=== PATIENT | female | born 1970 | race Hispanic/Latino ===

== ENCOUNTER 2016-09-18 13:28 | Emergency (ER) | payer SELFPAY ==
[2016-09-18 13:29] VITALS: BMI 24.1
[2016-09-18 13:48] VITALS: BP 117/78; PULSE 76; RESP 20; TEMP 98.2; O2SAT 98
--- NOTE | 2016-09-18 14:27 | ED PDOC ---
HPI: CCC, URI, Sore Throat Time Seen by Provider: 09/18/16 13:51 Chief Complaint (Nursing): Flu-like Symptoms Chief Complaint (Provider): Cough History Per: Patient History/Exam Limitations: no limitations Have you had recent travel within the past 21 days to any of the following countries: [place], [place], [place] or [place]?: No Onset/Duration Of Symptoms: Days (since yesterday) Current Symptoms Are (Timing): Still Present Associated Symptoms: Sore Throat, Nasal Congestion. denies: Fever, Chills Severity: Moderate Additional Complaint(s): Cecilia Blum is a 45 year old female, with a past medical history that includes hypercholesterolemia, who presents to the ED on 09/18/16 for the evaluation of a moderate, nonproductive cough that she has experienced since yesterday. Associated nasal congestion and sore throat also reported, though she denies fever, chills, shortness of breath, throat swelling, rash, abdominal pain or recent travel. Has medicated with theraflu with a reported worsening of symptoms. Of note, recent sick contacts include the patient's 5 month old granddaughter, who was recently diagnosed with Influenza. PMD: Sun Nagy Past Medical History Reviewed: Historical Data, Nursing Documentation, Vital Signs Vital Signs: Last Vital Signs Temp 98.2 F 09/18/16 13:45 Pulse 76 09/18/16 13:45 Resp 20 09/18/16 13:45 BP 117/78 09/18/16 13:45 Pulse Ox 98 09/18/16 14:30 - Medical History PMH: Asthma, Fractures (right foot), Hypercholesterolemia, Malignancy (sarcoma rt femur), Migraine Denies: HIV, Chronic Kidney Disease - Surgical History Surgical History: Appendectomy, - Family History Family History: States: Unknown Family Hx, CAD - Immunization History Hx Tetanus Toxoid Vaccination: Yes Hx Influenza Vaccination: Yes Hx Pneumococcal Vaccination: No - Home Medications Home Medications: Ambulatory Orders Medication Instructions Recorded Albuterol HFA [Ventolin HFA 90 2 puff IH [id number] 11/07/15 mcg/actuation (8 g)] Fluticasone/Salmeterol 250/50 1 puff IH Q12 11/07/15 [Advair Diskus] Montelukast [Singulair] 10 mg PO HS 11/07/15 Pantoprazole [Protonix] 40 mg PO DAILY 11/07/15 Sumatriptan Succinate [Imitrex] 100 mg PO PRN PRN 11/07/15 Ondansetron ODT [Zofran ODT] 4 mg PO Q8 PRN #10 odt 01/17/16 Naproxen [Naprosyn] 500 mg PO Q12H #20 tab 04/01/16 Cyclobenzaprine [Flexeril] 5 mg PO Q8 PRN #15 tab 08/02/16 Naproxen [Naprosyn] 1 tab PO BID PRN #30 tab 08/02/16 Benzonatate [Tessalon Perle] 100 mg PO Q8 PRN #30 capsule 09/18/16 Fluticasone Propionate [Flonase] 2 spr NS DAILY PRN #1 bottle 09/18/16 - Allergies Allergies/Adverse Reactions: Allergies Allergy/AdvReac Type Severity Reaction Status Date / Time FISH Allergy Intermediate RASH Verified 09/18/16 13:44 sulfamethoxazole Allergy RASH Verified 09/18/16 13:44 [From Bactrim] trimethoprim [From Bactrim] Allergy RASH Verified 09/18/16 13:44 vancomycin Allergy RASH Verified 09/18/16 13:44 Review of Systems ENT: Positive for: Nose Congestion, Throat Pain. Negative for: Throat Swelling Respiratory: Positive for: Cough. Negative for: Shortness of Breath Gastrointestinal: Negative for: Abdominal Pain Skin: Negative for: Rash Physical Exam - Reviewed Nursing Documentation Reviewed: Yes Vital Signs Reviewed: Yes - Physical Exam Appears: Positive for: Non-toxic, No Acute Distress Head Exam: Positive for: ATRAUMATIC, NORMOCEPHALIC Skin: Positive for: Normal Color, Warm, Dry Eye Exam: Positive for: Normal appearance, PERRL ENT: Positive for: Normal ENT Inspection. Negative for: Pharyngeal Erythema, Tonsillar Exudate, Tonsillar Swelling Cardiovascular/Chest: Positive for: Regular Rate, Rhythm. Negative for: Murmur Respiratory: Positive for: Normal Breath Sounds. Negative for: Respiratory Distress Neurologic/Psych: Positive for: Alert, Oriented - ECG O2 Sat by Pulse Oximetry: 98 (RA) Pulse Ox Interpretation: Normal - Progress ED Course And Treament: Rapid strep, rapid flu: negative. Medical Decision Making Medical Decision Makin:51 Initial Impression: cough/congestion/sore throat; will r/o Influenza, Strep Initial Plan: * Influenza A B * Rapid Strep Scribe Attestation: Documented by Chyna Kim, acting as a scribe for Jack Abbott PA-C. Provider Scribe Attestation: All medical record entries made by the Scribe were at my direction and personally dictated by me. I have reviewed the chart and agree that the record accurately reflects my personal performance of the history, physical exam, medical decision making, and the department course for this patient. I have also personally directed, reviewed, and agree with the discharge instructions and disposition. Disposition - Clinical Impression Clinical Impression: Upper respiratory infection - Patient ED Disposition Is Patient to be Admitted: No - Disposition Referrals: [facility] [Outside] Disposition: Routine/Home Disposition Time: 15:10 Condition: STABLE Additional Instructions: Follow up with your PMD in 2 days for further evaluation. Prescriptions: Fluticasone Propionate [Flonase] 2 spr NS DAILY PRN #1 bottle PRN Reason: Allergy Symptoms Benzonatate [Tessalon Perle] 100 mg PO Q8 PRN #30 capsule PRN Reason: Cough Instructions: Upper Respiratory Infection (ED) Forms: [facility] ED School/Work Excuse
== END 2016-09-18 15:27 | disposition home or self-care (01) ==
LOC: H.ER 13:28
DX: J06.9 Acute upper respiratory infection, unspecified (principal); J02.9 Acute pharyngitis, unspecified; E78.00 Pure hypercholesterolemia, unspecified

== ENCOUNTER 2017-01-23 09:31 | Emergency (ER) | payer MEDICAID, OTHER ==
[2017-01-23 09:31] VITALS: BMI 23.3
[2017-01-23 10:06] VITALS: BP 113/71; PULSE 78; RESP 18; TEMP 98.6; O2SAT 98
--- NOTE | 2017-01-23 10:21 | ED PDOC ---
Lower Extremity Pain/Injury Time Seen by Provider: 01/23/17 09:47 Chief Complaint (Nursing): Lower Extremity Problem/Injury Chief Complaint (Provider): Knee injury History Per: Patient History/Exam Limitations: no limitations Onset/Duration Of Symptoms: Days (Yesterday) Current Symptoms Are (Timing): Still Present Additional Complaint(s): Pt. with R knee and ankle pain. Started last night after twisting her ankle and knee while walking. No numbness, tingles, weakness. No hip pain. No back pain, chest pain, dyspnea. No dizziness, head injury. Ambulating on it with pain and wearing slippers. Past Medical History Reviewed: Nursing Documentation, Vital Signs Vital Signs: Last Vital Signs Temp 98.6 F 01/23/17 10:05 Pulse 78 01/23/17 10:05 Resp 18 01/23/17 10:05 BP 113/71 01/23/17 10:05 Pulse Ox 98 01/23/17 10:05 - Medical History PMH: Asthma, Fractures, Hypercholesterolemia, Malignancy (sarcoma rt femur), Migraine Denies: Chronic Kidney Disease - Surgical History Surgical History: Appendectomy, - Family History Family History: States: CAD - Immunization History Hx Tetanus Toxoid Vaccination: Yes Hx Influenza Vaccination: Yes Hx Pneumococcal Vaccination: No - Home Medications Home Medications: Ambulatory Orders Medication Instructions Recorded Ibuprofen [Motrin] 600 mg PO TID 7 Days 01/23/17 - Allergies Allergies/Adverse Reactions: Allergies Allergy/AdvReac Type Severity Reaction Status Date / Time FISH Allergy Intermediate RASH Verified 01/23/17 10:15 sulfamethoxazole Allergy RASH Verified 01/23/17 10:15 [From Bactrim] trimethoprim [From Bactrim] Allergy RASH Verified 01/23/17 10:15 vancomycin Allergy RASH Verified 01/23/17 10:15 Review of Systems Constitutional: Negative for: Weakness Cardiovascular: Negative for: Chest Pain Respiratory: Negative for: Shortness of Breath Musculoskeletal: Positive for: Leg Pain. Negative for: Neck Pain, Shoulder Pain , Arm Pain, Back Pain, Hand Pain Skin: Negative for: Rash Neurological: Negative for: Weakness, Numbness, Dizziness Physical Exam - Reviewed Nursing Documentation Reviewed: Yes Vital Signs Reviewed: Yes - Physical Exam Appears: Positive for: Non-toxic, No Acute Distress Head Exam: Positive for: ATRAUMATIC, NORMAL INSPECTION, NORMOCEPHALIC Skin: Positive for: Normal Color, Warm, DRY Neck: Positive for: Normal, Painless ROM Cardiovascular/Chest: Positive for: Regular Rate, Rhythm Respiratory: Positive for: CNT, Normal Breath Sounds Pulses-Dorsalis Pedis (R): 2+ Back: Positive for: Normal Inspection. Negative for: L CVA Tenderness, R CVA Tenderness Extremity: Positive for: Normal ROM, Tenderness (R lateral knee mild with trace swelling; no laxity to joint; R ankle lateral mild tender; no laxity or swelling ; no erythema anywhere). Negative for: Calf Tenderness Neurologic/Psych: Positive for: Alert, Oriented - ECG O2 Sat by Pulse Oximetry: 98 Pulse Ox Interpretation: Normal - Radiology X-Ray: Interpreted by Me, Viewed By Me X-Ray Interpretation: No Acute Disease - Progress ED Course And Treament: 1134: Stable. AAOx3. Ambulating with no issues. Fu with pcp. Disposition - Clinical Impression Clinical Impression: Knee injury, Ankle injury - Patient ED Disposition Is Patient to be Admitted: No Counseled Patient/Family Regarding: Studies Performed, Diagnosis, Need For Followup - Disposition Referrals: [facility] [Outside] - 01/25/17 Disposition: Routine/Home Disposition Time: 11:37 Condition: STABLE Additional Instructions: Return if not better in 3 days. Prescriptions: Ibuprofen [Motrin] 600 mg PO TID 7 Days Instructions: Musculoskeletal Pain (ED), Knee Pain (ED)
--- NOTE | 2017-01-24 08:56 | RAD ---
PROCEDURE: Right Knee Radiographs. HISTORY: pain COMPARISON: None. FINDINGS: BONES: Postsurgical changes of the distal femur. No fracture. JOINTS: Normal. No osteoarthritis. JOINT EFFUSION: None. OTHER FINDINGS: None. IMPRESSION: Postsurgical changes of the distal femur.
--- NOTE | 2017-01-24 09:08 | RAD ---
HISTORY: pain COMPARISON: No prior FINDINGS: BONES: Normal. No fracture. JOINTS: Normal. No osteoarthritis. SOFT TISSUE: Plantar spur formation. OTHER FINDINGS: None . IMPRESSION: No fracture.
== END 2017-01-23 12:00 | disposition home or self-care (01) ==
LOC: H.ER 09:31
DX: S89.91XA Unspecified injury of right lower leg, initial encounter (principal); S99.911A Unspecified injury of right ankle, initial encounter; X50.9XXA Other and unspecified overexertion or strenuous movements or postures, initial encounter; Y92.89 Other specified places as the place of occurrence of the external cause; E78.00 Pure hypercholesterolemia, unspecified

== ENCOUNTER 2017-03-29 06:41 | Emergency (ER) | payer OTHER ==
[2017-03-29 06:42] VITALS: BMI 23.3
[2017-03-29 06:56] VITALS: BP 120/76; PULSE 85; RESP 18; TEMP 98.3; O2SAT 98
[2017-03-29] MEDS ORDERED: Sodium Chloride 0.9% 1,000 ML IV STA (07:27)
--- NOTE | 2017-03-29 07:31 | ED PDOC ---
HPI: Abdomen Time Seen by Provider: 03/29/17 07:08 Chief Complaint (Nursing): Abdominal Pain Chief Complaint (Provider): Abdominal Pain History Per: Patient History/Exam Limitations: no limitations Onset/Duration Of Symptoms: Days (x1) Current Symptoms Are (Timing): Still Present Additional Complaint(s): Cecilia Blum is a 46 year old female with a past medical history of asthma and a past surgical history of an appendectomy and a myomectomy presenting to the ED for an evaluation of cramping in her right lower leg occurring last night for which she took 3 tablets of Motrin. The patient states she then woke up this morning with left flank pain, nausea, and non-bloody vomiting. She also has associated decreased urination occurring since yesterday. She denies fever, constipation, diarrhea, dysuria, and hematuria. PMD: Janet Trevino MD Past Medical History Reviewed: Historical Data, Nursing Documentation, Vital Signs Vital Signs: Last Vital Signs Temp 98.3 F 03/29/17 07:07 Pulse 85 03/29/17 07:07 Resp 18 03/29/17 07:07 BP 120/76 03/29/17 07:07 Pulse Ox 98 03/29/17 07:35 - Medical History PMH: Asthma, Fractures, Hypercholesterolemia, Malignancy (sarcoma rt femur), Migraine Denies: Chronic Kidney Disease - Surgical History Surgical History: Appendectomy, Other surgeries: myomectomy - Family History Family History: States: CAD - Social History Current smoker - smoking cessation education provided: No Ex-Smoker (has not smoked in the last 12 months): No Alcohol: None Drugs: Denies, Other (denies OCP use) - Immunization History Hx Tetanus Toxoid Vaccination: Yes Hx Influenza Vaccination: Yes Hx Pneumococcal Vaccination: No - Home Medications Home Medications: Ambulatory Orders Medication Instructions Recorded Ibuprofen [Motrin] 600 mg PO TID 7 Days tab 01/23/17 Naproxen [Naprosyn] 500 mg PO BID PRN #15 tablet 03/29/17 Polyethylene Glycol 3350 [Miralax] 1 tbs PO DAILY PRN #1 bottle 03/29/17 - Allergies Allergies/Adverse Reactions: Allergies Allergy/AdvReac Type Severity Reaction Status Date / Time FISH Allergy Intermediate RASH Verified 03/29/17 07:07 sulfamethoxazole Allergy RASH Verified 03/29/17 07:07 [From Bactrim] trimethoprim [From Bactrim] Allergy RASH Verified 03/29/17 07:07 vancomycin Allergy RASH Verified 03/29/17 07:07 Review of Systems ROS Statement: Except As Marked, All Systems Reviewed And Found Negative Constitutional: Negative for: Fever Gastrointestinal: Positive for: Nausea, Vomiting (non-bloody), Abdominal Pain ( left flank pain). Negative for: Diarrhea, Constipation Genitourinary Female: Positive for: Other (decreased urination). Negative for: Dysuria, Hematuria Musculoskeletal: Positive for: Leg Pain (right lower leg cramping) Physical Exam - Reviewed Nursing Documentation Reviewed: Yes Vital Signs Reviewed: Yes - Physical Exam Appears: Positive for: Non-toxic. Negative for: No Acute Distress (mild painful distress) Head Exam: Positive for: ATRAUMATIC, NORMOCEPHALIC Skin: Positive for: Normal Color, Warm, Dry Eye Exam: Positive for: Normal appearance ENT: Positive for: Normal ENT Inspection Neck: Positive for: Normal Cardiovascular/Chest: Positive for: Regular Rate, Rhythm Respiratory: Negative for: Respiratory Distress Gastrointestinal/Abdominal: Positive for: Tenderness (to LLQ). Negative for: Guarding, Rebound Back: Positive for: L CVA Tenderness. Negative for: R CVA Tenderness Extremity: Positive for: Tenderness (right calf tenderness) Neurologic/Psych: Positive for: Alert, Oriented. Negative for: Motor/Sensory Deficits - Laboratory Results Result Diagrams: 03/29/17 07:45 03/29/17 07:45 - ECG O2 Sat by Pulse Oximetry: 98 (RA) Pulse Ox Interpretation: Normal Medical Decision Making Medical Decision Making: Time: 07:08 Impression: Right lower leg cramping Plan: * ED Ekg * CMP * CBC (with differential) * PTT * Prothrombin Time * Urinalysis * US Duplex Lower Ext Vein Right * CT Abd & Pelvis W/O PO or IV Cont * Morphine 2 mg IV * NS 1,000 ml IV 1,000 mls/hr * Zofran Inj 4 mg IV * Reevaluation Pt given copy of CT report. Scribe Attestation: Documented by Yessica Sheldon, acting as a scribe for Deena Flower MD. Provider Scribe Attestation: All medical record entries made by the Scribe were at my direction and personally dictated by me. I have reviewed the chart and agree that the record accurately reflects my personal performance of the history, physical exam, medical decision making, and the department course for this patient. I have also personally directed, reviewed, and agree with the discharge instructions and disposition. Disposition - Clinical Impression Clinical Impression: Mesenteric adenitis, Leg pain, Hiatal hernia, Constipation - Disposition Referrals: Janet Trevino MD [Primary Care Provider] - Condition: STABLE Prescriptions: Naproxen [Naprosyn] 500 mg PO BID PRN #15 tablet PRN Reason: Pain, Moderate (4-7) Polyethylene Glycol 3350 [Miralax] 1 tbs PO DAILY PRN #1 bottle PRN Reason: Constipation Instructions: Mesenteric Adenitis (ED), Leg Pain (ED), Hiatal Hernia (ED), Constipation (ED) Forms: [employer] (Turkish)
[2017-03-29 07:58] LABS: BASO % 0.5 % (0.0-2.0); EOS # 0.1 K/uL (0.0-0.7); EOS % 0.9 % (0.0-4.0); HEMATOCRIT 35.1 % (34.0-47.0); LYMPH # 1.7 K/uL (1.0-4.3); LYMPH % 30.9 % (20.0-40.0); MEAN CELL VOLUME 87.7 fl (81.0-99.0); MEAN CORPUSCULAR HEMOGLOBIN 29.6 pg (27.0-31.0); MEAN CORPUSCULAR HGB CONC 33.8 g/dL (33.0-37.0); MEAN PLATELET VOLUME 9.3 fl (7.2-11.7); MONO # 0.5 K/uL (0.0-0.8); NEUT # 3.3 K/uL (1.8-7.0); NEUT % 58.7 % (50.0-75.0); NRBC % 0.1 % (0.0-0.0); RED CELL DISTRIBUTION WIDTH 13.6 % (11.5-14.5); WHITE BLOOD COUNT 5.6 K/uL (4.8-10.8)
[2017-03-29 08:09] LABS: ALB/GLOB RATIO 1.3 (1.0-2.1); ALKALINE PHOSPHATASE 50 U/L (38-126); ALT/SGPT 23 U/L (9-52); AST/SGOT 18 U/L (14-36); BILIRUBIN,TOTAL 0.5 mg/dl (0.2-1.3); BLOOD UREA NITROGEN 19 mg/dl (7-17); CALCIUM 9.3 mg/dL (8.4-10.2); CARBON DIOXIDE 22 mmol/L (22-30); CHLORIDE 105 mmol/L (98-107); GFR AFRICAN-AMERICAN > 60; GLUCOSE,RANDOM 92 mg/dL (65-105); POTASSIUM 4.2 MMOL/L (3.6-5.0); SODIUM 136 mmol/l (132-148); TOTAL PROTEIN 7.3 G/DL (6.3-8.2)
[2017-03-29 08:11] LABS: RBC URINE 4 /hpf (0-3); URINE BILIRUBIN NEGATIVE (NEGATIVE); URINE BLOOD SMALL (NEGATIVE); URINE COLOR YELLOW (YELLOW); URINE GLUCOSE (UA) NEG (Normal); URINE KETONE NEGATIVE (NEGATIVE); URINE LEUKOCYTE ESTERASE TRACE Leu/uL (Negative); URINE PROTEIN NEGATIVE (NEGATIVE); URINE UROBILINOGEN 0.2-1.0 mg/dL (0.2-1.0); WBC URINE 1 /hpf (0-5)
[2017-03-29 08:16] LABS: PARTIAL THROMBOPLASTIN TIME 31.6 Seconds (25.6-37.1)
--- NOTE | 2017-03-29 08:55 | US ---
PROCEDURE: Right lower extremity venous duplex Doppler. HISTORY: RLQ pain COMPARISON: None available. TECHNIQUE: Common femoral, superficial femoral, popliteal and posterior tibial veins were evaluated. Flow was assessed with color Doppler, compressibility, assessment of phasic flow and augmentation response. FINDINGS: COMMON FEMORAL VEIN: Unremarkable. SUPERFICIAL FEMORAL VEIN: Unremarkable. POPLITEAL VEIN: Unremarkable. POSTERIOR TIBIAL VEIN: Unremarkable. OTHER FINDINGS: None. IMPRESSION: No evidence of deep venous thrombosis in the right lower extremity.
--- NOTE | 2017-03-29 09:13 | CT ---
PROCEDURE: CT Abdomen and Pelvis without intravenous contrast HISTORY: L CVAT COMPARISON: None. TECHNIQUE: Technique. Contrast Dose: Radiation dose: Total exam DLP = mGy-cm. This CT exam was performed using one or more of the following dose reduction techniques: Automated exposure control, adjustment of the mA and/or kV according to patient size, and/or use of iterative reconstruction technique. FINDINGS: LOWER THORAX: Unremarkable. LIVER: Unremarkable. No gross lesion or ductal dilatation. GALLBLADDER AND BILE DUCTS: Unremarkable. PANCREAS: Unremarkable. No gross lesion or ductal dilatation. SPLEEN: Unremarkable. ADRENALS: Unremarkable. No mass. KIDNEYS AND URETERS: Unremarkable. No hydronephrosis. No solid mass. VASCULATURE: Unremarkable. No aortic aneurysm. BOWEL: Unremarkable. No obstruction. No gross mural thickening. APPENDIX: Unremarkable. Normal appendix. PERITONEUM: Unremarkable. No free fluid. No free air. LYMPH NODES: Unremarkable. No enlarged lymph nodes. BLADDER: Unremarkable. REPRODUCTIVE: Unremarkable. BONES: No acute fracture. OTHER FINDINGS: None. IMPRESSION: Unremarkable non contrast enhanced CT of the abdomen and pelvis.
--- NOTE | 2017-03-29 17:23 | CARD ---
APPROVED REPORT EKG Measurement Heart [id number] SD [id number] <Conclusion> Normal sinus rhythm Normal ECG
== END 2017-03-29 11:25 | disposition home or self-care (01) ==
LOC: H.ER 06:41
DX: I88.0 Nonspecific mesenteric lymphadenitis (principal); K44.9 Diaphragmatic hernia without obstruction or gangrene; K59.00 Constipation, unspecified; M79.604 Pain in right leg
CPT/HCPCS: 74176; 80053; 81003; 81025; 85025; 85610; 85730; 93005; 93971; 99284; J2270; J2405; J7040

== ENCOUNTER 2017-07-26 07:33 | Emergency (ER) | payer OTHER ==
[2017-07-26 07:37] VITALS: BMI 25.7
[2017-07-26] MEDS ORDERED: Sodium Chloride 0.9% 1,000 ML IV STA (08:14)
--- NOTE | 2017-07-26 08:27 | ED PDOC ---
HPI: CCC, URI, Sore Throat Time Seen by Provider: 07/26/17 07:53 Chief Complaint (Nursing): Flu-like Symptoms Chief Complaint (Provider): Flu-like Symptoms History Per: Patient History/Exam Limitations: no limitations Onset/Duration Of Symptoms: Days (x2) Current Symptoms Are (Timing): Still Present Additional Complaint(s): 46 year old female presents to the emergency department complaining of 2 days of sore throat, cough, headache, and body aches. Patient also reports vomiting and bilateral ear pain. No fever. She took Tylenol at 4AM today. Denies any associated abdominal pain, diarrhea, chest pain, or shortness of breath. PMD: Dr. Maryjane Trevino Past Medical History Reviewed: Historical Data, Nursing Documentation, Vital Signs Vital Signs: Last Vital Signs Temp 97 F L 07/26/17 07:36 Pulse 86 07/26/17 07:36 Resp 18 07/26/17 07:52 BP 124/72 07/26/17 07:36 Pulse Ox 97 07/26/17 12:41 - Medical History PMH: Asthma, Fractures (right foot), Hypercholesterolemia, Malignancy (sarcoma rt femur), Migraine Denies: Chronic Kidney Disease - Surgical History Surgical History: Appendectomy, - Family History Family History: States: CAD - Social History Current smoker - smoking cessation education provided: No Alcohol: None Drugs: Denies - Immunization History Hx Tetanus Toxoid Vaccination: Yes Hx Influenza Vaccination: Yes Hx Pneumococcal Vaccination: No - Home Medications Home Medications: Ambulatory Orders Medication Instructions Recorded Ibuprofen [Motrin] 600 mg PO TID 7 Days tab 01/23/17 Naproxen [Naprosyn] 500 mg PO BID PRN #15 tablet 03/29/17 Polyethylene Glycol 3350 [Miralax] 1 tbs PO DAILY PRN #1 bottle 03/29/17 Naproxen [Naprosyn] 500 mg PO BID PRN #15 tablet 07/26/17 Nitrofurantoin Macrocrystals 100 mg PO BID #13 cap 07/26/17 [Macrobid] - Allergies Allergies/Adverse Reactions: Allergies Allergy/AdvReac Type Severity Reaction Status Date / Time FISH Allergy Intermediate RASH Verified 03/29/17 07:07 sulfamethoxazole Allergy RASH Verified 03/29/17 07:07 [From Bactrim] trimethoprim [From Bactrim] Allergy RASH Verified 03/29/17 07:07 vancomycin Allergy RASH Verified 03/29/17 07:07 Review of Systems ROS Statement: Except As Marked, All Systems Reviewed And Found Negative Constitutional: Positive for: Other (body aches). Negative for: Fever, Chills ENT: Positive for: Ear Pain (bilateral), Throat Pain Cardiovascular: Negative for: Chest Pain Respiratory: Positive for: Cough. Negative for: Shortness of Breath Gastrointestinal: Positive for: Vomiting. Negative for: Abdominal Pain, Diarrhea Neurological: Positive for: Headache Physical Exam - Reviewed Nursing Documentation Reviewed: Yes Vital Signs Reviewed: Yes - Physical Exam Appears: Positive for: Non-toxic, No Acute Distress Head Exam: Positive for: ATRAUMATIC, NORMAL INSPECTION, NORMOCEPHALIC Skin: Positive for: Normal Color, Warm, Dry Eye Exam: Positive for: EOMI, Normal appearance, PERRL ENT: Positive for: Normal ENT Inspection, TM Is/Are (normal bilaterally). Negative for: Pharyngeal Erythema, Tonsillar Exudate, Tonsillar Swelling Neck: Positive for: Normal, Painless ROM, Supple Cardiovascular/Chest: Positive for: Regular Rate, Rhythm. Negative for: Murmur Respiratory: Positive for: Normal Breath Sounds. Negative for: Accessory Muscle Use, Wheezing, Respiratory Distress Gastrointestinal/Abdominal: Positive for: Normal Exam, Bowel Sounds, Soft. Negative for: Tenderness, Distended Extremity: Positive for: Normal ROM. Negative for: Pedal Edema, Deformity Neurologic/Psych: Positive for: Alert, Oriented - Laboratory Results Result Diagrams: 07/26/17 08:50 07/26/17 08:50 - ECG O2 Sat by Pulse Oximetry: 97 (RA) Pulse Ox Interpretation: Normal Medical Decision Making Medical Decision Making: Initial Impression: Flu-like symptoms Time: 8:13 Initial Plan: --CMP --CBC w/ differential --Urine --Urine dip --Influenza A B --Rapid strep test --Throat Culture --Urinalysis --Chest x-ray --NS IV 1000 ml at 1000 mls/hr --Toradol 15 mg IVP --Zofran 4 mg IV --Reevaluation Labs reviewed: Urine is significant for bacteria present. Otherwise, blood work is grossly normal. Negative for flu and strep. Time: 10:16 CHEST X-RAY FINDINGS: LUNGS: No active pulmonary disease. PLEURA: No significant pleural effusion identified. No pneumothorax apparent. CARDIOVASCULAR: Normal. OSSEOUS STRUCTURES: No significant abnormalities. VISUALIZED UPPER ABDOMEN: Normal. OTHER FINDINGS: None. IMPRESSION: No interval acute cardiopulmonary disease appreciated. Time: 12:38 Given 100mg Macrobid x1 in the ER Clinical Impression: UTI, Influenza-like symptoms Patient is medically stable for discharge home, and was provided with rx for Macrobid and Naproxen. Counseled regarding diagnosis and the need for follow up with PMD. There is agreement to discharge plan. Return if symptoms persist or worsen. Scribe Attestation: Documented by Leigh Ann Onofre, acting as a scribe for Deena Flower MD Provider Scribe Attestation: All medical record entries made by the Scribe were at my direction and personally dictated by me. I have reviewed the chart and agree that the record accurately reflects my personal performance of the history, physical exam, medical decision making, and the department course for this patient. I have also personally directed, reviewed, and agree with the discharge instructions and disposition. Disposition - Clinical Impression Clinical Impression: Influenza-like symptoms, UTI (urinary tract infection) - Patient ED Disposition Is Patient to be Admitted: No Counseled Patient/Family Regarding: Studies Performed, Diagnosis, Need For Followup, Rx Given - Disposition Disposition: Routine/Home Disposition Time: 12:40 Condition: STABLE Additional Instructions: FOLLOW-UP WITH PMD WITHIN 2 DAYS FOR REEVALUATION. Prescriptions: Naproxen [Naprosyn] 500 mg PO BID PRN #15 tablet PRN Reason: Pain, Moderate (4-7) Nitrofurantoin Macrocrystals [Macrobid] 100 mg PO BID #13 cap Instructions: Urinary Tract Infection in Women (ED), Viral Syndrome (ED) Forms: [employer] (Maltese) - POA Present On Arrival: None
[2017-07-26 08:59] LABS: BASO % 0.5 % (0.0-2.0); EOS # 0.1 K/uL (0.0-0.7); EOS % 0.8 % (0.0-4.0); HEMOGLOBIN 12.6 g/dL (12.0-16.0); LYMPH # 1.1 K/uL (1.0-4.3); LYMPH % 14.9 % (20.0-40.0); MEAN CELL VOLUME 87.7 fl (81.0-99.0); MEAN CORPUSCULAR HEMOGLOBIN 29.1 pg (27.0-31.0); MEAN CORPUSCULAR HGB CONC 33.1 g/dL (33.0-37.0); MEAN PLATELET VOLUME 8.9 fl (7.2-11.7); MONO # 0.6 K/uL (0.0-0.8); MONO % 7.8 % (0.0-10.0); NEUT # 5.7 K/uL (1.8-7.0); NRBC % 0.1 % (0.0-0.0); RBC 4.32 Mil/uL (3.80-5.20); RED CELL DISTRIBUTION WIDTH 13.4 % (11.5-14.5); WHITE BLOOD COUNT 7.5 K/uL (4.8-10.8)
[2017-07-26 09:07] LABS: ALB/GLOB RATIO 1.2 (1.0-2.1); ALBUMIN 4.3 g/dL (3.5-5.0); ALT/SGPT 25 U/L (9-52); AST/SGOT 19 U/L (14-36); BLOOD UREA NITROGEN 12 mg/dl (7-17); CALCIUM 9.2 mg/dL (8.4-10.2); GFR AFRICAN-AMERICAN > 60; GFR NON-AFRICAN AMERICAN > 60
[2017-07-26 09:41] LABS: SQUAMOUS EPITHIAL 17 /hpf (0-5); URINE BACTERIA RARE (<OCC); URINE BILIRUBIN NEGATIVE (NEGATIVE); URINE BLOOD LARGE (NEGATIVE); URINE CLARITY CLOUDY (Clear); URINE COLOR YELLOW (YELLOW); URINE GLUCOSE (UA) NEG (Normal); URINE LEUKOCYTE ESTERASE SMALL Leu/uL (Negative); URINE NITRATE NEGATIVE (NEGATIVE); URINE PROTEIN NEGATIVE (NEGATIVE); URINE UROBILINOGEN 0.2-1.0 mg/dL (0.2-1.0)
--- NOTE | 2017-07-26 10:18 | RAD ---
HISTORY: Cough COMPARISON: Chest radiographs 01/17/2016 TECHNIQUE: Chest PA and lateral FINDINGS: LUNGS: No active pulmonary disease. PLEURA: No significant pleural effusion identified. No pneumothorax apparent. CARDIOVASCULAR: Normal. OSSEOUS STRUCTURES: No significant abnormalities. VISUALIZED UPPER ABDOMEN: Normal. OTHER FINDINGS: None. IMPRESSION: No interval acute cardiopulmonary disease appreciated.
[2017-07-26 13:03] VITALS: BP 109/65; PULSE 88; RESP 16; O2SAT 99
[2017-07-26 13:28] VITALS: TEMP 99.9
== END 2017-07-26 13:14 | disposition home or self-care (01) ==
LOC: H.ER 07:33
DX: N39.0 Urinary tract infection, site not specified (principal); Z82.49 Family history of ischemic heart disease and other diseases of the circulatory system; J45.909 Unspecified asthma, uncomplicated; E78.00 Pure hypercholesterolemia, unspecified; J11.1 Influenza due to unidentified influenza virus with other respiratory manifestations
CPT/HCPCS: 71046; 80053; 81003; 81025; 85025; 87070; 87430; 87804; 96361; 96374; 96375; 99284; J1885; J2405; J7040

== ENCOUNTER 2017-10-08 13:16 | Emergency (ER) | payer OTHER ==
[2017-10-08 13:16] VITALS: BMI 25.7
[2017-10-08 13:24] VITALS: BP 108/66; PULSE 93; RESP 16; TEMP 98.2; O2SAT 100
[2017-10-08] MEDS: Sodium Chloride 0.9% 1,000 ML IV SCH ×3 (15:52→18:40)
[2017-10-08 15:55] LABS: BASO % 0.3 % (0.0-2.0); HEMOGLOBIN 12.8 g/dL (12.0-16.0); LYMPH # 0.6 K/uL (1.0-4.3); LYMPH % 7.9 % (20.0-40.0); MEAN CELL VOLUME 86.4 fl (81.0-99.0); MEAN CORPUSCULAR HEMOGLOBIN 29.5 pg (27.0-31.0); MEAN CORPUSCULAR HGB CONC 34.2 g/dL (33.0-37.0); MEAN PLATELET VOLUME 9.1 fl (7.2-11.7); MONO # 0.4 K/uL (0.0-0.8); MONO % 5.4 % (0.0-10.0); NEUT # 6.8 K/uL (1.8-7.0); NEUT % 86.4 % (50.0-75.0); NRBC % 0.1 % (0.0-0.0); PLATELET COUNT 188 K/uL (130-400); RBC 4.33 Mil/uL (3.80-5.20); RED CELL DISTRIBUTION WIDTH 13.9 % (11.5-14.5); WHITE BLOOD COUNT 7.9 K/uL (4.8-10.8)
--- NOTE | 2017-10-08 15:57 | ED PDOC ---
HPI: Abdomen Time Seen by Provider: 10/08/17 15:06 Chief Complaint (Nursing): Abdominal Pain Chief Complaint (Provider): Abdominal Pain History Per: Patient History/Exam Limitations: no limitations Onset/Duration Of Symptoms: Days (x2) Current Symptoms Are (Timing): Still Present Additional Complaint(s): 46 year old female with medical history of GERD and ovarian cysts, presents to the emergency department with a complaint of diffuse abdominal pain associated with 3 episodes of non-bloody diarrhea and 18 episodes of non-bloody, non- bilious vomiting since eating [place] around 1830 last night. Patient stated symptoms began around 2100, in which, she took Pepto Bismal and Ibruprofen without relief. She denies any fever, chills, vaginal bleeding, urinary complaints, recent travel or sick contacts. Patient had called her PMD earlier today who advised her to go to ED for evaluation. PMD: Janet Trevino MD LMP: 09/26/17 Past Medical History Reviewed: Historical Data, Nursing Documentation, Vital Signs Vital Signs: Last Vital Signs Temp 98.2 F 10/08/17 13:22 Pulse 93 H 10/08/17 13:22 Resp 16 10/08/17 13:22 BP 108/66 10/08/17 13:22 Pulse Ox 100 10/08/17 21:07 - Medical History PMH: Asthma, Fractures (right foot), GERD, Hypercholesterolemia, Malignancy ( sarcoma rt femur), Migraine Denies: Chronic Kidney Disease Other PMH: ovarian cyst - Surgical History Surgical History: Appendectomy, Other surgeries: tubal ligation; multiple leg and ankle procedures - Family History Family History: States: CAD - Social History Current smoker - smoking cessation education provided: No Ex-Smoker (has not smoked in the last 12 months): No Alcohol: None Drugs: Denies - Home Medications Home Medications: Ambulatory Orders Medication Instructions Recorded Ibuprofen [Motrin] 600 mg PO TID 7 Days tab 01/23/17 Naproxen [Naprosyn] 500 mg PO BID PRN #15 tablet 03/29/17 Polyethylene Glycol 3350 [Miralax] 1 tbs PO DAILY PRN #1 bottle 03/29/17 Naproxen [Naprosyn] 500 mg PO BID PRN #15 tablet 07/26/17 Nitrofurantoin Macrocrystals 100 mg PO BID #13 cap 07/26/17 [Macrobid] Dicyclomine [Bentyl] 20 mg PO TID PRN #12 tab 10/08/17 Ondansetron ODT [Zofran ODT] 4 mg PO Q6 PRN #12 odt 10/08/17 - Allergies Allergies/Adverse Reactions: Allergies Allergy/AdvReac Type Severity Reaction Status Date / Time FISH Allergy Intermediate RASH Verified 03/29/17 07:07 sulfamethoxazole Allergy RASH Verified 03/29/17 07:07 [From Bactrim] trimethoprim [From Bactrim] Allergy RASH Verified 03/29/17 07:07 vancomycin Allergy RASH Verified 03/29/17 07:07 Review of Systems ROS Statement: Except As Marked, All Systems Reviewed And Found Negative Constitutional: Negative for: Fever, Chills Gastrointestinal: Positive for: Vomiting (NBNB x18), Abdominal Pain (diffuse), Diarrhea (nonbloody x3) Genitourinary Female: Negative for: Dysuria, Hematuria, Vaginal Bleeding Physical Exam - Reviewed Nursing Documentation Reviewed: Yes Vital Signs Reviewed: Yes - Physical Exam Appears: Positive for: Well, Non-toxic, Uncomfortable Head Exam: Positive for: ATRAUMATIC, NORMOCEPHALIC Skin: Positive for: Normal Color, Warm, Dry Eye Exam: Positive for: EOMI, PERRL Neck: Positive for: Painless ROM, Supple Cardiovascular/Chest: Positive for: Regular Rate, Rhythm. Negative for: Chest Non Tender Respiratory: Positive for: Normal Breath Sounds. Negative for: Decreased Breath Sounds, Accessory Muscle Use, Respiratory Distress Gastrointestinal/Abdominal: Positive for: Bowel Sounds (active x4), Soft, Tenderness (diffuse). Negative for: Mass, Distended, Guarding, Rebound Back: Positive for: Normal Inspection. Negative for: L CVA Tenderness, R CVA Tenderness Extremity: Positive for: Normal ROM. Negative for: Deformity Neurologic/Psych: Positive for: Alert, Oriented (x3), Gait (steady in ED). Negative for: Motor/Sensory Deficits, Aphasia, Facial Droop - Laboratory Results Result Diagrams: 10/08/17 15:43 10/08/17 15:43 Urine POC: Negative Urine dip results: Positive for: Blood (moderate), Protein (30). Negative for: Leukocyte Esterase, Nitrate, Ketones, Glucose, Bilirubin - ECG O2 Sat by Pulse Oximetry: 100 (RA) Pulse Ox Interpretation: Normal Medical Decision Making Medical Decision Making: Initial Impression: Gastroenteritis, vomiting and diarrhea Initial Plan: CMP * Urine * Urine dipstick * CBC * Bentyl 20mg IM * NS 1,000ml IV * Pepcid 40mg IVP * Toradol 30mg IVP * Zofran 8mg PO 1900 Patient resting comfortably in ED stretcher. Pending urine results. 1939 Labs and urine reviewed, grossly unremarkable. Patient tolerating PO intake in ED without difficulty. No further vomiting or diarrhea episodes in ED. On re-evaluation, patient reports improvement of symptoms, denies any abdominal pain at this time. On exam, patient remains AAOx3, in no acute distress. Lungs clear to auscultation, cardiac RRR, abdomen soft, non-tender, repeat neuro exam shows no focal findings. VSS. Diagnostic results d/w the patient in great detail. Diagnosis of nausea and vomiting, diarrhea, gastroenteritis d/w the patient. Based on history, exam and diagnostic results, plan will be for outpatient follow up. Patient instructed to follow-up with pmd / referral provided / the clinic in 1- 2 days without fail. Advised to take medication as prescribed. Return to the emergency room at any time for any new or worsening symptoms. Patient states she fully agrees with and understands discharge instructions. States that she agrees with the plan and disposition. Verbalized and repeated discharge instructions and plan. I have given the patient opportunity to ask any additional questions. Scribe Attestation: Documented by Gloria Andrews, acting as a scribe for Allyson Gilmore MD. Provider Scribe Attestation: All medical record entries made by the Scribe were at my direction and personally dictated by me. I have reviewed the chart and agree that the record accurately reflects my personal performance of the history, physical exam, medical decision making, and the department course for this patient. I have also personally directed, reviewed, and agree with the discharge instructions and disposition. Disposition - Clinical Impression Clinical Impression: Nausea and vomiting, Diarrhea, Gastroenteritis, Abdominal pain in female - Patient ED Disposition Is Patient to be Admitted: No Counseled Patient/Family Regarding: Studies Performed, Diagnosis, Need For Followup, Rx Given - Disposition Referrals: Janet Trevino MD [Family Provider] - Disposition: Routine/Home Disposition Time: 19:41 Condition: STABLE Prescriptions: Dicyclomine [Bentyl] 20 mg PO TID PRN #12 tab PRN Reason: Diarrhea Ondansetron ODT [Zofran ODT] 4 mg PO Q6 PRN #12 odt PRN Reason: Nausea/Vomiting Instructions: Diarrhea in Adolescents and Adults, [place] Diet, Acute Abdomen ( Belly Pain), Nausea and Vomiting, Adult, Stomach Ache and Stomach Upset Forms: [employer] (Urdu) Print Language: TRINIDADIAN - POA Present On Arrival: None Results - Lab Results Lab Results: 10/08/17 10/08/17 15:43 15:43 WBC 7.9 RBC 4.33 Hgb 12.8 Hct 37.4 MCV 86.4 MCH 29.5 MCHC 34.2 RDW 13.9 Plt Count 188 MPV 9.1 Neut % (Auto) 86.4 H Lymph % (Auto) 7.9 L Randall % (Auto) 5.4 Eos % (Auto) 0.0 Baso % (Auto) 0.3 Neut # (Auto) 6.8 Lymph # (Auto) 0.6 L Randall # (Auto) 0.4 Eos # (Auto) 0.0 Baso # (Auto) 0.0 Neutrophils % (Manual) 78 H Band Neutrophils % 3 H Lymphocytes % (Manual) 12 L Monocytes % (Manual) 7 Platelet Estimate Normal Hypochromasia (manual) Slight Anisocytosis (manual) Slight Microcytosis (manual) Slight Ovalocytes Slight Sodium 138 Potassium 3.6 Chloride 100 Carbon Dioxide 25 Anion Gap 17 BUN 17 Creatinine 0.6 L Est GFR ( Amer) > 60 Est GFR (Non-Af Amer) > 60 Random Glucose 102 Calcium 9.4 Total Bilirubin 1.0 AST 24 ALT 36 Alkaline Phosphatase 47 Total Protein 8.2 Albumin 4.3 Globulin 3.9 Albumin/Globulin Ratio 1.1
[2017-10-08 16:14] LABS: ALB/GLOB RATIO 1.1 (1.0-2.1); ALBUMIN 4.3 g/dL (3.5-5.0); ALT/SGPT 36 U/L (9-52); AST/SGOT 24 U/L (14-36); BLOOD UREA NITROGEN 17 mg/dl (7-17); CALCIUM 9.4 mg/dL (8.4-10.2); GFR AFRICAN-AMERICAN > 60; GFR NON-AFRICAN AMERICAN > 60
[2017-10-08 18:03] LABS: ANISOCYTOSIS SLIGHT; BANDS 3 % (0-2); HYPOCHROMIC SLIGHT; LYMPHOCYTE 12 % (20-50); MICROCYTOSIS SLIGHT; MONOCYTE 7 % (0-10); NEUTROPHIL 78 % (42-75); OVALOCYTES SLIGHT; PLATELET ESTIMATE NORMAL (NORMAL); TOTAL CELLS COUNTED 100
== END 2017-10-08 20:13 | disposition home or self-care (01) ==
LOC: H.ER 13:16
DX: K52.9 Noninfective gastroenteritis and colitis, unspecified (principal); E78.00 Pure hypercholesterolemia, unspecified; K21.9 Gastro-esophageal reflux disease without esophagitis
CPT/HCPCS: 80053; 81025; 85025; 96372; 96374; 96375; 99283; J0500; J1885; J7040

== ENCOUNTER 2017-10-31 00:15 | Emergency (ER) | payer OTHER, MEDICAID ==
[2017-10-31 00:15] VITALS: BMI 25.7
[2017-10-31 00:24] VITALS: RESP 18; O2SAT 99
[2017-10-31] MEDS ORDERED: Sodium Chloride 0.9% 1,000 ML IV STA (02:11)
--- NOTE | 2017-10-31 03:05 | ED PDOC ---
Burn Injury/Smoke Inhalation Time Seen by Provider: 10/31/17 02:00 Chief Complaint (Nursing): Burn Chief Complaint (Provider): Bilateral Leg Bales History Per: Patient History/Exam Limitations: no limitations Injury Occurred (Timing): Days Ago: (4) Type Of Burn (Context): Other (Sun) Additional Complaint(s): 46 yo female with a history of asthma presents to the ED complaining bales to her legs bilaterally after spending 30 minutes in the sun in [place], onset of 4 days ago. Since then, she reports of subjective fever, nausea, vomiting, and dizziness. Past Medical History Reviewed: Historical Data, Nursing Documentation, Vital Signs Vital Signs: Last Vital Signs Temp 98.4 F 10/31/17 00:21 Pulse 90 10/31/17 00:21 Resp 18 10/31/17 00:21 BP 103/65 10/31/17 00:21 Pulse Ox 99 10/31/17 00:21 - Medical History PMH: Asthma, Fractures (right foot), GERD, Hypercholesterolemia, Malignancy ( sarcoma rt femur), Migraine Denies: Chronic Kidney Disease - Surgical History Surgical History: Appendectomy, - Family History Family History: States: CAD - Social History Current smoker - smoking cessation education provided: No Ex-Smoker (has not smoked in the last 12 months): No Alcohol: None Drugs: Denies - Immunization History Hx Tetanus Toxoid Vaccination: Yes Hx Influenza Vaccination: Yes Hx Pneumococcal Vaccination: No - Home Medications Home Medications: Ambulatory Orders Medication Instructions Recorded Ibuprofen [Motrin] 600 mg PO TID 7 Days tab 01/23/17 Naproxen [Naprosyn] 500 mg PO BID PRN #15 tablet 03/29/17 Polyethylene Glycol 3350 [Miralax] 1 tbs PO DAILY PRN #1 bottle 03/29/17 Naproxen [Naprosyn] 500 mg PO BID PRN #15 tablet 07/26/17 Nitrofurantoin Macrocrystals 100 mg PO BID #13 cap 07/26/17 [Macrobid] Dicyclomine [Bentyl] 20 mg PO TID PRN #12 tab 10/08/17 Ondansetron ODT [Zofran ODT] 4 mg PO Q6 PRN #12 odt 10/08/17 Cephalexin [Keflex] 250 mg PO QID 7 Days capsule 10/31/17 traMADol [Ultram] 50 mg PO Q8 #15 tab 10/31/17 - Allergies Allergies/Adverse Reactions: Allergies Allergy/AdvReac Type Severity Reaction Status Date / Time FISH Allergy Intermediate RASH Verified 03/29/17 07:07 sulfamethoxazole Allergy RASH Verified 03/29/17 07:07 [From Bactrim] trimethoprim [From Bactrim] Allergy RASH Verified 03/29/17 07:07 vancomycin Allergy RASH Verified 03/29/17 07:07 Review of Systems ROS Statement: Except As Marked, All Systems Reviewed And Found Negative Constitutional: Positive for: Fever, Chills Gastrointestinal: Positive for: Nausea, Vomiting Neurological: Positive for: Dizziness Physical Exam - Reviewed Nursing Documentation Reviewed: Yes Vital Signs Reviewed: Yes - Physical Exam Appears: Positive for: Well, Non-toxic, No Acute Distress Head Exam: Positive for: ATRAUMATIC, NORMAL INSPECTION, NORMOCEPHALIC Skin: Positive for: Warm. Negative for: Normal Color (bilateral erythema from feet up to upper thigh in a sun exposure distribution) Eye Exam: Positive for: EOMI, Normal appearance, PERRL ENT: Positive for: Normal ENT Inspection Neck: Positive for: Normal, Painless ROM Cardiovascular/Chest: Positive for: Regular Rate, Rhythm. Negative for: Murmur Respiratory: Positive for: Normal Breath Sounds. Negative for: Respiratory Distress Gastrointestinal/Abdominal: Positive for: Normal Exam, Soft. Negative for: Tenderness Back: Positive for: Normal Inspection Extremity: Positive for: Normal ROM. Negative for: Pedal Edema, Deformity Neurologic/Psych: Positive for: Alert, Oriented. Negative for: Motor/Sensory Deficits - Laboratory Results Result Diagrams: 10/31/17 04:16 10/31/17 04:16 - ECG O2 Sat by Pulse Oximetry: 99 (RA) Pulse Ox Interpretation: Normal Medical Decision Making Medical Decision Making: Time: --02:11 Impression: --Sun Burn and possible cellulitis, well appearing -will check labs, give fluids, toradol Plan: --Labs --Lactic Acid --ED Urine Dip --ED Urine Preg --Toradol 30 mg IVP --IV Fluids --Zofran 4 mg IVP --Blood Culture Reassess --500 Patient is feeling better, will treat for cellulitis, advised patient to followup with PMD in 1 - 2 days for recheck of cellulitis or return to ER if redness spreads, fever develops, or other concerning symptoms. Scribe Attestation: Documented by Jonatan Olson acting as a scribe for Owen Carranza MD. Provider Attestation: All medical record entries made by the Scribe were at my direction and personally dictated by me. I have reviewed the chart and agree that the record accurately reflects my personal performance of the history, physical exam, medical decision making, and the department course for this patient. I have also personally directed, reviewed, and agree with the discharge instructions and disposition. Disposition - Clinical Impression Clinical Impression: Sunburn - Patient ED Disposition Is Patient to be Admitted: No - Disposition Referrals: [facility] [Outside] Disposition: Routine/Home Disposition Time: 05:00 Condition: IMPROVED Prescriptions: Cephalexin [Keflex] 250 mg PO QID 7 Days capsule traMADol [Ultram] 50 mg PO Q8 #15 tab Instructions: [place] Forms: [employer] (Yi)
[2017-10-31 04:21] LABS: BASO % 0.3 % (0.0-2.0); EOS # 0.1 K/uL (0.0-0.7); EOS % 0.7 % (0.0-4.0); LYMPH # 1.7 K/uL (1.0-4.3); LYMPH % 18.6 % (20.0-40.0); MEAN CELL VOLUME 86.5 fl (81.0-99.0); MEAN CORPUSCULAR HGB CONC 33.5 g/dL (33.0-37.0); MEAN PLATELET VOLUME 9.5 fl (7.2-11.7); MONO # 0.8 K/uL (0.0-0.8); MONO % 8.9 % (0.0-10.0); NEUT # 6.6 K/uL (1.8-7.0); NEUT % 71.5 % (50.0-75.0); RBC 4.14 Mil/uL (3.80-5.20); RED CELL DISTRIBUTION WIDTH 13.5 % (11.5-14.5); WHITE BLOOD COUNT 9.3 K/uL (4.8-10.8)
[2017-10-31 04:38] LABS: BLOOD UREA NITROGEN 12 mg/dl (7-17); CALCIUM 8.9 mg/dL (8.4-10.2); GFR AFRICAN-AMERICAN > 60; GFR NON-AFRICAN AMERICAN > 60
[2017-10-31 08:13] VITALS: BP 113/72; PULSE 88; TEMP 98
== END 2017-10-31 05:10 | disposition home or self-care (01) ==
LOC: H.ER 00:15
DX: L55.0 Sunburn of first degree (principal); E78.00 Pure hypercholesterolemia, unspecified
CPT/HCPCS: 80048; 83605; 85025; 87040; 96374; 96375; 99284; J1885; J2405; J7040

== ENCOUNTER 2018-04-20 07:38 | Emergency (ER) | payer MEDICAID ==
[2018-04-20 07:38] VITALS: BMI 25.7
[2018-04-20 07:44] VITALS: RESP 18
--- NOTE | 2018-04-20 08:20 | ED PDOC ---
HPI: Abdomen Time Seen by Provider: 04/20/18 07:54 Chief Complaint (Nursing): Abdominal Pain Chief Complaint (Provider): Abd pain History Per: Patient History/Exam Limitations: no limitations Onset/Duration Of Symptoms: Days () Additional Complaint(s): Pt. with left lower abd pain going into the left flank. Was off and on and now constant. Is a sharp pain. Nausea, vomit, nonbloody with it. Had similar 3 weeks ago and was told she had a fibroid. Has spotting vaginal bleeding curren tly. No diarrhea, dysuria. No weakness. Past Medical History Reviewed: Nursing Documentation, Vital Signs Vital Signs: Last Vital Signs Temp 97.9 F 04/20/18 07:43 Pulse 81 04/20/18 07:43 Resp 18 04/20/18 07:43 BP 126/80 04/20/18 07:43 Pulse Ox 98 04/20/18 07:43 - Medical History PMH: Asthma, Fractures (right foot), GERD, Hypercholesterolemia, Malignancy (sarcoma rt femur), Migraine Denies: Chronic Kidney Disease Other PMH: fibroids - Surgical History Surgical History: Appendectomy, - Family History Family History: States: CAD - Immunization History Hx Tetanus Toxoid Vaccination: Yes Hx Influenza Vaccination: Yes Hx Pneumococcal Vaccination: No - Home Medications Home Medications: Ambulatory Orders Medication Instructions Recorded Ibuprofen [Motrin] 600 mg PO TID 7 Days tab 01/23/17 Naproxen [Naprosyn] 500 mg PO BID PRN #15 tablet 03/29/17 Polyethylene Glycol 3350 [Miralax] 1 tbs PO DAILY PRN #1 bottle 03/29/17 Naproxen [Naprosyn] 500 mg PO BID PRN #15 tablet 07/26/17 Nitrofurantoin Macrocrystals 100 mg PO BID #13 cap 07/26/17 [Macrobid] Dicyclomine [Bentyl] 20 mg PO TID PRN #12 tab 10/08/17 Ondansetron ODT [Zofran ODT] 4 mg PO Q6 PRN #12 odt 10/08/17 Cephalexin [Keflex] 250 mg PO QID 7 Days capsule 10/31/17 traMADol [Ultram] 50 mg PO Q8 #15 tab 10/31/17 Diazepam [Valium] 2 mg PO BID PRN #6 tab 04/20/18 - Allergies Allergies/Adverse Reactions: Allergies Allergy/AdvReac Type Severity Reaction Status Date / Time FISH Allergy Intermediate RASH Verified 04/20/18 07:57 sulfamethoxazole Allergy RASH Verified 04/20/18 07:57 [From Bactrim] trimethoprim [From Bactrim] Allergy RASH Verified 04/20/18 07:57 vancomycin Allergy RASH Verified 04/20/18 07:57 Review of Systems ROS Statement: Except As Marked, All Systems Reviewed And Found Negative Gastrointestinal: Positive for: Nausea, Vomiting, Abdominal Pain Musculoskeletal: Positive for: Back Pain Physical Exam - Reviewed Nursing Documentation Reviewed: Yes Vital Signs Reviewed: Yes - Physical Exam Appears: Positive for: Non-toxic, No Acute Distress Head Exam: Positive for: ATRAUMATIC, NORMAL INSPECTION, NORMOCEPHALIC Skin: Positive for: Normal Color, Warm, DRY Eye Exam: Positive for: EOMI, Normal appearance, PERRL ENT: Positive for: Normal ENT Inspection Neck: Positive for: Normal, Painless ROM Cardiovascular/Chest: Positive for: Regular Rate, Rhythm Respiratory: Positive for: CNT, Normal Breath Sounds Gastrointestinal/Abdominal: Positive for: Soft, Tenderness (LLQ) Back: Positive for: L CVA Tenderness. Negative for: R CVA Tenderness Extremity: Positive for: Normal ROM. Negative for: Tenderness, Pedal Edema Neurologic/Psych: Positive for: Alert, Oriented - Laboratory Results Result Diagrams: 04/20/18 08:24 04/20/18 08:24 Interpretation Of Abn Labs: no acute - ECG O2 Sat by Pulse Oximetry: 98 - CT Scan/US US Other Rad Studies (CT/US): Read By Radiologist Other Rad Interpretation: large fibroid - Progress ED Course And Treament: 1134: Pt. stable. Demanding more pain meds. No acute findings except fibroid. Tolerated PO. Fu with pcp/obgyn. AAOx3. Disposition - Clinical Impression Clinical Impression: Fibroid - Patient ED Disposition Is Patient to be Admitted: No Counseled Patient/Family Regarding: Studies Performed, Diagnosis, Need For Followup, Rx Given - Disposition [facility] - 04/21/18 Disposition: Routine/Home Disposition Time: 11:36 Condition: STABLE Additional Instructions: Return if not better in 3 days. Prescriptions: Diazepam [Valium] 2 mg PO BID PRN #6 tab PRN Reason: Muscle Spasm Instructions: Uterine Fibroids Forms: [employer] (Faroese), [facility] ED School/Work Excuse
[2018-04-20] MEDS: Sodium Chloride 0.9% 1,000 ML IV STA (08:30)
[2018-04-20 08:33] LABS: BASO % 0.4 % (0.0-2.0); EOS # 0.1 K/uL (0.0-0.7); LYMPH # 1.4 K/uL (1.0-4.3); LYMPH % 26.6 % (20.0-40.0); MEAN CELL VOLUME 87.7 fl (81.0-99.0); MEAN CORPUSCULAR HEMOGLOBIN 29.9 pg (27.0-31.0); MEAN PLATELET VOLUME 8.6 fl (7.2-11.7); MONO # 0.5 K/uL (0.0-0.8); MONO % 10.6 % (0.0-10.0); NEUT # 3.1 K/uL (1.8-7.0); NEUT % 61.4 % (50.0-75.0); NRBC % 0.1 % (0.0-0.0); RBC 4.02 Mil/uL (3.80-5.20); RED CELL DISTRIBUTION WIDTH 13.4 % (11.5-14.5); WHITE BLOOD COUNT 5.1 K/uL (4.8-10.8)
[2018-04-20 08:49] LABS: ALB/GLOB RATIO 1.1 (1.0-2.1); ALT/SGPT 35 U/L (9-52); AST/SGOT 22 U/L (14-36); BLOOD UREA NITROGEN 13 mg/dl (7-17); CALCIUM 9.2 mg/dL (8.4-10.2); GFR NON-AFRICAN AMERICAN > 60; LIPASE 143 U/L (23-300)
--- NOTE | 2018-04-20 10:14 | US ---
Date of service: 04/20/2018 HISTORY: Vaginal bleeding COMPARISON: None available. TECHNIQUE: Transvaginal pelvic ultrasound was performed. FINDINGS: UTERUS: Measures 11.8 x 7.1 x 6.2 cm. Anteverted and enlarged. There is a 1.1 x 1.1 x 1.2 cm posterior wall mid body intramural fibroid, 0.8 x 0.7 cm anterior wall midbody intramural fibroid and 1.3 x 0.6 x 1.3 cm anterior fundal subserosal fibroid. ENDOMETRIUM: Measures 4 mm in diameter. Unremarkable. CERVIX: There is small amount of fluid in the endocervical canal. RIGHT OVARY: Measures 2.8 x 2.4 x 1.9 cm. No solid mass. Normal flow. LEFT OVARY: Measures 2.4 x 2.4 x 1.7 cm. No solid mass. Normal flow. FREE FLUID: No significant free fluid noted. OTHER FINDINGS: None. IMPRESSION: Enlarged fibroid uterus, the largest 1.3 cm anterior wall subserosal fundal fibroid.
[2018-04-20] MEDS ORDERED: Oxycodone/Acetaminophen 5/325 mg Tab ONE (11:41)
[2018-04-20] MEDS: Oxycodone/Acetaminophen 5/325 mg Tab PO ONE (11:43)
[2018-04-20 12:35] VITALS: BP 100/57; PULSE 75; TEMP 98.3; O2SAT 99
== END 2018-04-20 12:23 | disposition home or self-care (01) ==
LOC: H.ER 07:38
DX: D25.9 Leiomyoma of uterus, unspecified (principal); E78.00 Pure hypercholesterolemia, unspecified
CPT/HCPCS: 76830; 80053; 81025; 83690; 85025; 96361; 96374; 96375; 99284; J1885; J2405; J7030

== ENCOUNTER 2018-05-18 00:35 | Emergency (ER) | payer BC ==
[2018-05-18 00:35] VITALS: BMI 25.7
[2018-05-18 00:59] VITALS: TEMP 98.6
[2018-05-18] MEDS ORDERED: Sodium Chloride 0.9% 1,000 ML IV STA (01:28)
--- NOTE | 2018-05-18 01:47 | ED PDOC ---
HPI: Chest Pain Time Seen by Provider: 05/18/18 01:15 Chief Complaint (Nursing): Chest Pain Chief Complaint (Provider): Palpitations and Chest Pain History Per: Patient History/Exam Limitations: no limitations Onset/Duration Of Symptoms: Days (x1) Current Symptoms Are (Timing): Still Present Additional Complaint(s): Cecilia Blum, a 47 year old female with a past medical history of gastritis, fibroids, and migraines, presents to the ED complaining of chest pain and palpitations onset x1 day. Patient states she first went to [facility] ED for palpitations and headache. She reports being given IV Reglan and toradol, and then was discharged. After going home, she states she became nauseous and x8 episodes of nonbilious nonbloody vomiting. She also states she developed chest discomfort and agitation after IV medications. PCP: Janet Trevino Past Medical History Reviewed: Historical Data, Nursing Documentation, Vital Signs Vital Signs: Last Vital Signs Temp 98.6 F 05/18/18 00:51 Pulse 86 05/18/18 00:51 Resp 16 05/18/18 00:51 BP 136/90 05/18/18 00:51 Pulse Ox 98 05/18/18 00:51 - Medical History PMH: Asthma, Fractures (right foot), Gastritis, GERD, Hypercholesterolemia, Malignancy (sarcoma rt femur), Migraine Denies: Chronic Kidney Disease Other PMH: fibroids - Surgical History Surgical History: Appendectomy, Other surgeries: laparoscopy, right femur surgery, right foot surgery - Family History Family History: States: CAD - Social History Current smoker - smoking cessation education provided: No Alcohol: None Drugs: Denies - Immunization History Hx Tetanus Toxoid Vaccination: Yes Hx Influenza Vaccination: Yes Hx Pneumococcal Vaccination: No - Home Medications Home Medications: Ambulatory Orders Medication Instructions Recorded Ibuprofen [Motrin] 600 mg PO TID 7 Days tab 01/23/17 Naproxen [Naprosyn] 500 mg PO BID PRN #15 tablet 03/29/17 Polyethylene Glycol 3350 [Miralax] 1 tbs PO DAILY PRN #1 bottle 03/29/17 Naproxen [Naprosyn] 500 mg PO BID PRN #15 tablet 07/26/17 Nitrofurantoin Macrocrystals 100 mg PO BID #13 cap 07/26/17 [Macrobid] Dicyclomine [Bentyl] 20 mg PO TID PRN #12 tab 10/08/17 Ondansetron ODT [Zofran ODT] 4 mg PO Q6 PRN #12 odt 10/08/17 Cephalexin [Keflex] 250 mg PO QID 7 Days capsule 10/31/17 RX: traMADol [Ultram] 50 mg PO Q8 #15 tab 10/31/17 Diazepam [Valium] 2 mg PO BID PRN #6 tab 04/20/18 Ondansetron ODT [Zofran ODT] 4 mg PO Q6H PRN #8 odt 05/18/18 - Allergies Allergies/Adverse Reactions: Allergies Allergy/AdvReac Type Severity Reaction Status Date / Time FISH Allergy Intermediate RASH Verified 04/20/18 07:57 sulfamethoxazole Allergy RASH Verified 04/20/18 07:57 [From Bactrim] trimethoprim [From Bactrim] Allergy RASH Verified 04/20/18 07:57 vancomycin Allergy RASH Verified 04/20/18 07:57 Review of Systems ROS Statement: Except As Marked, All Systems Reviewed And Found Negative Cardiovascular: Positive for: Chest Pain, Palpitations Gastrointestinal: Positive for: Nausea, Vomiting (x8 nonbilious nonbloody episodes) Physical Exam - Reviewed Nursing Documentation Reviewed: Yes Vital Signs Reviewed: Yes - Physical Exam Appears: Positive for: Uncomfortable Skin: Positive for: Normal Color, Warm, DRY Eye Exam: Positive for: EOMI, Normal appearance, PERRL ENT: Positive for: Other (mucous membranes dry) Cardiovascular/Chest: Positive for: Regular Rate, Rhythm. Negative for: Murmur Respiratory: Positive for: Normal Breath Sounds. Negative for: Respiratory Distress Extremity: Positive for: Normal ROM. Negative for: Deformity Neurologic/Psych: Positive for: Alert, Oriented. Negative for: Motor/Sensory Deficits - Laboratory Results Result Diagrams: 05/18/18 01:51 05/18/18 01:51 - ECG O2 Sat by Pulse Oximetry: 98 (RA) Pulse Ox Interpretation: Normal Medical Decision Making Medical Decision Making: Time: 127 Initial impression: 47 year old female with palpitations and chest pain Initial Plan: --labs --EKG --Urine test --Urine dipstick --Pepcid 20 mg IV --Zofran 4 mg IV Labs reviewed show no clinically significant abnormalities Patient feels improved and is stable for discharge home Dx Atypical Chest Pain ----- Scribe Attestation: Documented by Jimbo Peguero, acting as a scribe for Anibal Pierce MD. Provider Scribe Attestation: All medical record entries made by the Scribe were at my direction and personally dictated by me. I have reviewed the chart and agree that the record accurately reflects my personal performance of the history, physical exam, medical decision making, and the department course for this patient. I have also personally directed, reviewed, and agree with the discharge instructions and di sposition. Disposition - Clinical Impression Clinical Impression: Atypical chest pain, Nausea and vomiting - Disposition Disposition: Routine/Home Disposition Time: 05:00 Condition: STABLE Prescriptions: Ondansetron ODT [Zofran ODT] 4 mg PO Q6H PRN #8 odt PRN Reason: Nausea/Vomiting Instructions: Chest Pain That Is Not Caused by the Heart (DC) Forms: [employer] (Yoruba)
[2018-05-18 01:54] LABS: BASO % 0.4 % (0.0-2.0); EOS % 0.2 % (0.0-4.0); HEMOGLOBIN 12.4 g/dL (12.0-16.0); LYMPH # 1.1 K/uL (1.0-4.3); LYMPH % 19.1 % (20.0-40.0); MEAN CELL VOLUME 87.4 fl (81.0-99.0); MEAN CORPUSCULAR HEMOGLOBIN 28.9 pg (27.0-31.0); MONO # 0.4 K/uL (0.0-0.8); NEUT # 4.5 K/uL (1.8-7.0); NEUT % 74.3 % (50.0-75.0); RBC 4.28 Mil/uL (3.80-5.20); RED CELL DISTRIBUTION WIDTH 13.8 % (11.5-14.5)
[2018-05-18 02:12] LABS: ALB/GLOB RATIO 1.3 (1.0-2.1); ALBUMIN 4.5 g/dL (3.5-5.0); ALT/SGPT 22 U/L (9-52); AST/SGOT 18 U/L (14-36); BLOOD UREA NITROGEN 10 mg/dl (7-17); CALCIUM 9.7 mg/dL (8.4-10.2); GFR NON-AFRICAN AMERICAN > 60
[2018-05-18 05:19] VITALS: BP 113/68; PULSE 83; RESP 14
[2018-05-18 06:14] VITALS: O2SAT 98
--- NOTE | 2018-05-18 12:42 | CARD ---
APPROVED REPORT Date of service: 05/18/2018 EKG Measurement Heart [id number] <Conclusion> Normal sinus rhythm with sinus arrhythmia Left ventricular hypertrophy with repolarization abnormality Abnormal ECG
== END 2018-05-18 05:16 | disposition home or self-care (01) ==
LOC: H.ER 00:35
DX: R07.89 Other chest pain (principal); R11.2 Nausea with vomiting, unspecified
CPT/HCPCS: 80053; 81025; 84484; 85025; 93005; 96360; 99285; J2405; J7030